=== PATIENT | female | born 1990 | race Caucasian/White ===

== ENCOUNTER 2017-03-07 07:00 | Day surgery (SDC) | payer OTHER ==
[~2017-03-07] VITALS: Ht 175.3 cm; Wt 89.8 kg
[~2017-03-07 07:00] MED LIST: FLUOXETINE HCL10 M1 PO; VENTOLIN HFA18 GM INH; ZYRTEC10 MG PO
--- NOTE | 2017-03-07 10:46 | NUR ---
03/07/17 Cassius6 Julia Blackman 1030 PT ARRIVED NEEDING JAW THRUST TO MAINTAIN AIRWAY. PT NONRESPONSIVE TO STIMULI. 1040 PT MAINTAINING OWN AIRWAY, RESP EVEN AND UNLABORED.
--- NOTE | 2017-03-07 11:13 | NUR ---
PT IS BACK TO DS FROM PACU. REPORTING LESS THAN 1/10 PAIN -- CRAMPING. SHE IS TOLERATING SIPS OF WATER. CRACKERS ON BESIDE TABLE. CALL LIGHT WITH REACH. NO OTHER CO'S AT THIS TIME. WILL REASSESS WITHIN THE HOUR.
[2017-03-07] MEDS ORDERED: NORCO 5-325 TA1 EACH PO (11:54)
[2017-03-07] MEDS ORDERED: IBUPROFEN800 MG PO (11:54)
--- NOTE | 2017-03-07 13:19 | NUR ---
PT GIVEN DC INSTRUCTIONS IN THE PRESENCE OF HER MOM. SHE AND MOM VERBALIZE UNDERSTANDING AND ARE GIVEN THE OPPORTUNITY TO ASK QUESTIONS, WHICH ARE THEN ANSWERED. SHE IS EDUCATED ON HOW TO DRESS HERSELF AND THAT SHE WOULD THEN BE WHEELED OUT IN A WHEELCHAIR TO THE CAR.
--- NOTE | 2017-03-07 13:25 | NUR ---
PT RATHER ANXIOUS, VERSAID ALREADY ON BOARD. SUPPORTED BY HER MOTHER CALI. HELPED PT UNDERSTAND THE WAY THINGS WILL GO THIS MORNING, HAD PRAYER WITH HER. SHE THANKED ME, WILL FOLLOW NEEDED
--- NOTE | 2017-03-15 07:24 | OR ---
[address] [address] Signed DATE OF OPERATION: 03/07/2017 SURGEON: Ruddy Barney DO PREOPERATIVE DIAGNOSES: 1. High-grade squamous intraepithelial lesion. 2. High-risk Human papillomavirus positive. 3. Anxiety. POSTOPERATIVE DIAGNOSES: 1. High-grade squamous intraepithelial lesion. 2. High-risk Human papillomavirus positive. 3. Anxiety. PROCEDURES PERFORMED: Loop electrosurgical excision procedure with endocervical curettage. SURGEON: Ruddy Barney DO CONTROL AREA OPERATOR: None. ANESTHESIA: General. ESTIMATED BLOOD LOSS: Less than 5 mL. SPECIMEN: 1. Cervical LEEP biopsy. 2. Endocervical biopsy (Top-Hat LEEP). 3. Endocervical curettage. FINDINGS: Perineum with some irritation. Anal fissure improved, but still present at 12 o'clock. Upper vagina and cervix appear normal with acetic acid and Lugol's. HEMOSTASIS: At the end of procedure. Electronically Signed By: RUDDY BARNEY DO 03/15/17 0724 PATIENT NAME: PHIL MARIN OPERATIVE REPORT DATE OF : [birth year] PHYSICIAN: RUDDY BARNEY DO REPORT #: [id number] REPORT IS CONFIDENTIAL AND NOT TO BE RELEASED WITHOUT AUTHORIZATION [address] [address] Signed COMPLICATIONS: None. INDICATIONS: Ms. Marin is a pleasant 27-year-old, G0 white female with a history of abnormal Paps. She had an ASCUS Pap several years ago with a few interval normal Paps. She then had a HSIL Pap with positive high-risk HPV. She underwent colposcopy and biopsies that showed cervicitis. Repeat Pap, the patient again had HSIL. Decision was made to proceed with excisional procedure per ASCCP guidelines. Risks, benefits, and alternatives were discussed in detail with the patient. Patient understood and wished to proceed with the procedure. TECHNIQUE: The patient was taken to the operating room. A time-out was performed to confirm correct patient and correct procedure. General anesthesia was adequately established. This patient had a history of severe anxiety and was unable to tolerate procedure in the office. The patient was then prepped and draped in the dorsal lithotomy position. Her feet in Yellofin stirrups. ICPs were on and running and no preop antibiotics or heparin were indicated. A weighted speculum was placed in the vagina and examination of the vagina and the cervix was performed and normal. An insulated speculum was then placed, and the cervix was painted with acetic acid, that showed no gross acetowhite changes. The vagina and the cervix were then painted with Lugol solution, that showed no abnormalities outside of the squamocolumnar junction. A medium LEEP electrode 10 mm x 20 mm was then selected and used to perform the LEEP. A small LEEP electrode was then selected and used to perform Top-Hat biopsy. ECC then was performed with a Annemarie. The cervical and endocervical biopsies were marked at 12 o'clock with a stitch and all 3 biopsies were sent to Pathology for further evaluation. The biopsy site was made hemostatic with ball electrocautery and then Monsel solution was then applied. The patient was taken to the PACU in good and stable condition. Sponge, needle, and instrument count were correct x2 at end of the procedure. Ruddy Barney DO Electronically Signed By: RUDDY BARNEY DO 03/15/17 0724 PATIENT NAME: PHIL MARIN OPERATIVE REPORT DATE OF : [birth year] PHYSICIAN: RUDDY BARNEY DO REPORT #: [id number] REPORT IS CONFIDENTIAL AND NOT TO BE RELEASED WITHOUT AUTHORIZATION [address] [place] [address] Signed HONORIO/RANDY /[id number] Electronically Signed By: RUDDY BARNEY, DO 03/15/17 0724 PATIENT NAME: PHIL MARIN OPERATIVE REPORT DATE OF : [birth year] PHYSICIAN: RUDDY BARNEY DO REPORT #: [id number] REPORT IS CONFIDENTIAL AND NOT TO BE RELEASED WITHOUT AUTHORIZATION
== END 2017-03-07 13:10 | disposition home or self-care (01) ==
LOC: OPS 07:00 → DS 07:00 → OPS 09:30
PROVIDERS: Obstetrics & Gynecology
PROC: 0UBC7ZX Excision of Cervix, Via Natural or Artificial Opening, Diagnostic (ICD-10-PCS; principal; 2017-03-07 10:45)
DX: D06.0 Carcinoma in situ of endocervix (principal); N72 Inflammatory disease of cervix uteri; F41.9 Anxiety disorder, unspecified; J45.909 Unspecified asthma, uncomplicated; F32.9 Major depressive disorder, single episode, unspecified; Z90.89 Acquired absence of other organs; Z98.818 Other dental procedure status; Z79.899 Other long term (current) drug therapy
CPT/HCPCS: 00940; J1100; J1885; J2250; J2405; J3010; J7120

== ENCOUNTER 2017-10-17 08:50 | Day surgery (SDC) | payer OTHER ==
[~2017-10-17] VITALS: Ht 175.3 cm; Wt 90.3 kg
[~2017-10-17 08:50] MED LIST changes: +IBUPROFEN800 MG PO; +JOLESSA1 EACH PO; +NORCO 5-325 TA1 EACH PO
--- NOTE | 2017-10-17 12:05 | NUR ---
10/17/17 1205 Suzan Syed 1151- PT ARRIVES TO PACU UNRESPONSIVE TO STIMULI. MAINTAINING HER OWN AIRWAY. OXYGEN SAT 100% ON RA. 1157- PT TALKING WITH STAFF, REMAINS DROWSY. PT REPORTS NO NAUSEA OR PAIN.
--- NOTE | 2017-10-17 14:37 | NUR ---
PT IN BED, ALERT, ORIENTED AND SUPPORTED BY HER MOTHER CALI. PT WS SOMEWHAT ANXIOUS, HAS HAD SIMILIAR PRECEDURE. EXPLAINED ORDER OF EVENTS FOR TODAY, SHE SEEMED TO RELAX SOME-EVEN GOT HER TO LAUGH. PT REQUESTED PRAYER, WILL FOLLOW NEEDED
--- NOTE | 2017-10-22 20:27 | OR ---
[facility] [address] [place], [place] [address] Signed DATE OF OPERATION: 10/17/2017 SURGEON: Ruddy Barney DO PREOPERATIVE DIAGNOSES: 1. Cervical mass. 2. History of cervical intraepithelial neoplasia 3. POSTOPERATIVE DIAGNOSES: 1. Cervical mass. 2. History of cervical intraepithelial neoplasia 3. PROCEDURES PERFORMED: 1. Hysteroscopy. 2. Excision of endocervical polyp. 3. Endocervical curettage. ANESTHESIA: MAC. SPECIMENS: 1. Endocervical polyps. 2. Endocervical curettage. COMPLICATIONS: None. FINDINGS: Normal external genitalia. Cervix with endocervical polyp at 3 o'clock and at approximately 11 o'clock very distal in the endocervical canal. The remainder of the endocervical canal appears normal on hysteroscopy. The uterine cavity is normal with normal tubal ostia and endometrium without polyp or fibroid noted. INDICATIONS: Ms. Marin is a pleasant 27-year-old G0, P0 white female, who presented with high-grade Pap that was biopsied, MONCHO 3. A LEEP procedure was performed with a positive margin at 12 o'clock. At repeat examination six months later, she had an abnormal Pap smear and a cervical polyp was noted. On exam, ECC was unable to be performed. Biopsy of the cervical polyp was performed and demonstrated to be benign. Decision was made to bring the patient to the operating room to excise cervical polyps and further evaluate the Electronically Signed By: RUDDY BARNEY DO 10/22/172026 PATIENT NAME: PHIL MARIN OPERATIVE REPORT DATE OF : [birth year] REPORT #: [id number] PHYSICIAN: RUDDY BARNEY DO PCP: TANISHA GUZMAN PAC REPORT IS CONFIDENTIAL AND NOT TO BE RELEASED WITHOUT AUTHORIZATION [facility] [address] [place], [place] [address] Signed uterine cavity and endocervix. Risks, benefits, and alternatives were discussed in detail with the patient. Patient understands and wished to proceed with procedure. TECHNIQUE: The patient was taken to the operating room, where timeout was performed to confirm correct patient and correct procedure. MAC anesthesia was adequately established. The patient was prepped and draped in dorsal lithotomy position with her feet in Yellofin stirrups. ICPs were on and running and no preop antibiotics or heparin were indicated. A weighted speculum was placed in the vagina and the anterior lip of the cervix was grasped with long Allis clamp. After observing the endocervical polyps, an operative hysteroscope was then placed in the cervical os and advanced under direct visualization carefully and easily into the uterine cavity. Normal uterine cavity was identified. The hysteroscope was slowly withdrawn and the endocervical canal examined very carefully. No masses or other gross abnormalities were noted in the endocervical canal until the very distal portion at which point, the polyp arose predominantly at 3 o'clock, however there is a small polypoid tissue arising at 11 o'clock also. The hysteroscope was withdrawn and the polypoid tissue was then excised sharply using Metzenbaum scissors. Tissue was sent to pathology for further evaluation. An endocervical curettage was then performed with a Kevorkian curette and a Cytobrush used to collect additional cells. Ball-tipped cautery was then used to make the cervical os hemostatic and ablate any additional polypoid tissue. Good hemostasis was appreciated. The Allis clamp was removed, the speculum was removed, and the patient was then taken to PACU in good and stable condition. Sponge, needle, and instrument count was correct x2 at the end of procedure. Ruddy Barney DO JDW/MODL /[id number] Copies: ~ Electronically Signed By: RUDDY BARNEY DO 10/22/17 2027 PATIENT NAME: PHIL MARIN OPERATIVE REPORT DATE OF : [birth year] REPORT #: [id number] PHYSICIAN: RUDDY BARNEY DO PCP: TANISHA GUZMAN PAC REPORT IS CONFIDENTIAL AND NOT TO BE RELEASED WITHOUT AUTHORIZATION
== END 2017-10-17 12:43 | disposition home or self-care (01) ==
LOC: DS 08:50 → OPS 08:50 → DS 12:15 → OPS 12:15
PROVIDERS: Obstetrics & Gynecology
PROC: 0UDB7ZZ Extraction of Endometrium, Via Natural or Artificial Opening (ICD-10-PCS; 2017-10-17)
PROC: 0UJD8ZZ Inspection of Uterus and Cervix, Via Natural or Artificial Opening Endoscopic (ICD-10-PCS; 2017-10-17)
PROC: 0UBC7ZZ Excision of Cervix, Via Natural or Artificial Opening (ICD-10-PCS; principal; 2017-10-17 12:15)
DX: N84.1 Polyp of cervix uteri (principal); J45.909 Unspecified asthma, uncomplicated; F32.9 Major depressive disorder, single episode, unspecified; Z86.001 Personal history of in-situ neoplasm of cervix uteri; Z79.899 Other long term (current) drug therapy
CPT/HCPCS: 00952; J1100; J1885; J2250; J2405; J2704; J3010; J7120

== ENCOUNTER 2019-10-23 09:25 | Day surgery (SDC) | payer OTHER ==
[~2019-10-23] VITALS: Ht 175.3 cm; Wt 95.2 kg
--- NOTE | ~2019-10-23 | OR ---
[facility] [address] [place], [place] [address] Draft DATE OF OPERATION: 10/23/2019 SURGEON: Ruddy Barney DO PREOPERATIVE DIAGNOSES: 1. Incomplete miscarriage. 2. Rh positive. POSTOPERATIVE DIAGNOSES: 1. Incomplete miscarriage. 2. Rh positive. PROCEDURES PERFORMED: Suction dilation and curettage. ICE SCRAPER: None. ANESTHESIA: MAC. ESTIMATED BLOOD LOSS: 100 mL. SPECIMEN: Products of conception. FINDINGS: Normal external genitalia with normal clitoris, urethral meatus, bilateral [place]'s, and Bartholin's. Normal vagina with small amount of blood at the cervix. The cervix is visually closed. Uterus contracted and was clear of any remaining products of conception at the end of the procedure. Hemostasis at the end of procedure. COMPLICATIONS: None. INDICATIONS: Ms. Marin is a very pleasant 29-year-old, G1, P0-0-1-0, female who presented with incomplete miscarriage. She had an ultrasound approximately 11 weeks that showed empty gestational sac with irregular margins. The patient had regular periods and dating by PATIENT NAME: PHIL MARIN OPERATIVE REPORT DATE OF : [birth year] REPORT #: [id number] PHYSICIAN: RUDDY BARNEY DO PCP: TANISHA GUZMAN PAC REPORT IS CONFIDENTIAL AND NOT TO BE RELEASED WITHOUT AUTHORIZATION [facility] [address] [place] [id number] Draft LMP appeared to be accurate. Decreasing quants were noted over the past 48 hours, decreasing from 17,000-14,000. She has had increasing cramping and bleeding over the past several days. Discussed incomplete miscarriage and we reviewed options for management including expectant management, medications, or suction D and C. The patient's strongly requested suction D and C. Risks, benefits, and alternatives were discussed in detail with the patient. The patient understands and wished to proceed with the procedure. DESCRIPTION OF PROCEDURE: The patient was taken to the operating room, where a time-out was performed to confirm correct patient, correct procedure. MAC anesthesia was adequately established. The patient was then prepped and draped in the dorsal lithotomy position with feet in Yellofin stirrups. ICPs were on a running and no preoperative heparin was indicated. The patient received doxycycline 200 mg p.o. preoperative per [facility] protocol. The bladder was drained. Weighted speculum placed in vagina and the anterior lip of the cervix grasped with an Allis clamp. The cervix was very gently dilated just past the internal os using Hegar dilators up to a #10. A 10 curved curette was then gently advanced through the internal os of the cervix and gently advanced to the fundus. Suction was obtained to the green zone and the curette was slowly withdrawn while performing a circumferential curettage. Products of conception were noted in the suction tubing. A second pass was performed with the same technique that demonstrated minimal residual products of conception and the uterus appeared to contract down and bleeding was scant. The uterine cavity was gently probed using a sharp curette that demonstrated very minimal remainder products of conception. A final pass was then performed with a suction curette in the same fashion with no remaining products of conception and hemostats and uterus was hemostatic. A small amount of oozing was noted on the anterior lip of the cervix after removal of the Allis clamp. This was made hemostatic with a [id number] of 2-0 chromic. Uterus was involuted and bleeding was resolved. The patient was taken to PACU in good and stable condition. Sponge, needle, instrument count was correct x2 at the end of procedure. Ruddy Barney DO JDW/MODL /[id number] PATIENT NAME: PHIL MARIN OPERATIVE REPORT DATE OF : [birth year] REPORT #: [id number] PHYSICIAN: RUDDY BARNEY DO PCP: TANISHA GUZMAN PAC REPORT IS CONFIDENTIAL AND NOT TO BE RELEASED WITHOUT AUTHORIZATION [facility] [address] [place] [address] [place], [place] [address] Draft Copies: ~ PATIENT NAME: PHIL MARIN OPERATIVE REPORT DATE OF : [birth year] REPORT #: [id number] PHYSICIAN: RUDDY BARNEY DO PCP: TANISHA GUZMAN PAC REPORT IS CONFIDENTIAL AND NOT TO BE RELEASED WITHOUT AUTHORIZATION
[2019-10-23] MEDS ORDERED: CLARITIN10 MG PO (09:53)
--- NOTE | 2019-10-23 13:12 | NUR ---
10/23/19 1312 Suzan Syed 1251- PT ARRIVES TO PACU AROUSABLE, DOES NOT FOLLOW COMMANDS AND APPEARS CONFUSED. PT UPDATED THAT SHE IS IN THE RECOVERY ROOM AND TO TRY TO SLEEP. PT IS ABLE TO CLOSE HER EYES. RESP EVEN AND UNLABORED. OXYGEN SAT HIGH 90'S TO 100% ON RA. 1256- PT IS TEARY EYED SAYING, "MY BABY IS ". PT COMFORTED AND TALKED TO. PT IS ABLE TO BE CALMED. 1301- PT REPORTS SHE FEELS LIKE SHE IS HAVING SOME BLEEDING. PERIPAD CHECKED. NO BLEEDING PRESENT. 1307- DR. GAGE AT THE BEDSIDE TO TALK WITH THE PT.
--- NOTE | 2019-10-26 11:34 | PATH ---
[facility] [address] [facility] [place] [place] [address] Signed SPECIMEN(S): A PRODUCTS OF CONCEPTION SPECIMEN SOURCE: A. PRODUCTS OF CONCEPTION CLINICAL HISTORY: Incomplete miscarriage. FINAL PATHOLOGIC DIAGNOSIS: Products of conception: - Immature chorionic villi, implantation site, and decidua, consistent with products of conception. NAL:cml:C2NR MICROSCOPIC EXAMINATION: Histologic sections of all submitted blocks are examined by light microscopy. These findings, together with the gross examination, support the pathologic diagnosis. GROSS DESCRIPTION: One specimens are received in two containers, labeled "TW." A, #1. The specimen, labeled "TW," and designated on the requisition "products of conception," is received in formalin and consists of multiple fragments of brown-gerard, soft to villous tissue and red-brown clot (7.5 x 6.0 x 0.9 cm in aggregate). Tie Cutter sections submitted in cassette (A1). A, #2. The specimen, labeled "TW," and designated on the requisition "additional products of conception," is received in formalin and consists of multiple fragments of brown-gerard soft tissue and red-brown clot (3.4 x 2.9 x 1.0 cm in aggregate). Tie Cutter section is submitted in cassette (A1). AC (under the direct supervision of a pathologist) The Gross Description was prepared using a voice recognition system. The report was reviewed for accuracy; however, sound-alike word errors, addition and/or deletions may occur. If there is any question about this report, please contact Client Services. PERFORMING LABORATORY: The technical component was performed by [facility], [address] [place] [id number] (Airline Flight Attendant: Billie Connolly MD; CLIA# [id number]). Professional interpretation was performed by PATIENT NAME: PHIL QUINTERO PATHOLOGY DATE OF : [birth year] REPORT #: [id number] PHYSICIAN: LISA PATHOLOGY PCP: TANISHA GUZMAN PAC REPORT IS CONFIDENTIAL AND NOT TO BE RELEASED WITHOUT AUTHORIZATION [facility] [address] [place], [place] [address] Signed [facility], [facility], [address] [facility] [address], [place] [address] (CLIA# [id number]). Diagnostician: Sanjana Schroeder MD Pathologist Electronically Signed 10/26/2019 Copies: ~ PATIENT NAME: PHIL QUINTERO PATHOLOGY DATE OF : [birth year] REPORT #: [id number] PHYSICIAN: LISA PATHOLOGY PCP: TANISHA GUZMAN PAC REPORT IS CONFIDENTIAL AND NOT TO BE RELEASED WITHOUT AUTHORIZATION
== END 2019-10-23 14:00 | disposition home or self-care (01) ==
LOC: DS 09:25 → OPS 09:25 → DS 09:28
PROVIDERS: Obstetrics & Gynecology
PROC: 10D17ZZ Extraction of Products of Conception, Retained, Via Natural or Artificial Opening (ICD-10-PCS; principal; 2019-10-23 10:00)
DX: O03.4 Incomplete spontaneous abortion without complication (principal); J45.909 Unspecified asthma, uncomplicated; F32.9 Major depressive disorder, single episode, unspecified; F41.9 Anxiety disorder, unspecified; Z79.899 Other long term (current) drug therapy
CPT/HCPCS: 00952; 85027; 86850; 86900; 86901; J1100; J1885; J2001; J2250; J2405; J2704; J3010; J7121

== ENCOUNTER 2020-09-07 23:51 | Inpatient (IN) | payer OTHER ==
[~2020-09-07] VITALS: Ht 175.3 cm; Wt 93.7 kg
[2020-09-08] MEDS ORDERED: METOCLOPRAMIDE10 MG PO (00:13)
[2020-09-08] MEDS ORDERED: ENOXAPARIN40 MG/0.4 SUB-Q (00:14)
--- NOTE | 2020-09-08 07:01 | NUR ---
PT ARRIVED TO [facility] VIA STRETCHER. SHE WAS ABLE TO MOVE OVER SBA. VS TAKEN AND ENTERED. ORIENTED PT TO CALL LIGHT AND PROVIDED WARM BLANKET. PT DENIES FURTHER NEEDS AT THIS TIME. CALL LIGHT IS CLOSE.
--- NOTE | 2020-09-08 07:20 | NUR ---
REPORT RECEIVED FROM RN AND PT. ARRIVED VIA STRETCHER. PARTNER AT BEDSIDE. PT. DENIES PAIN OR NAUSEA AT THIS TIME. ALERT AND ORIENTED. AMBULATING WITH SBA. LUNGS CLEAR THROUGHOUT. ABDOMEN SOFT AND PT. DENIES TENDERNESS. IV SITE WNL AND FLUSHES WELL. SKIN INTACT. PT. UP TO THE BATHROOM WITH SBA ASSIST TO VOID. URINE IS SILVINO. PT. STATES SHE VOMITED SEVERAL TIMES YESTERDAY. SURG. WIPE DOWN COMPLETED. SCD IN PLACE. DISCUSSED POST-OP AND PAIN MANAGEMENT AND SAFETY. PT. LEFT RESTING WITH CALL LIGHT IN REACH.
--- NOTE | 2020-09-08 09:00 | NUR ---
PT. REPORTS 9/10 UPPER ABD PAIN THAT IS SHARP. ADMIN. 0.5 MG OF DILAUDID AND GIVEN A HEAT PACK. PT. AMBULATED INDEPENDENTLY TO THE BATHROOM TO VOID. BACK TO BED WITH SCDS IN PLACE.
--- NOTE | 2020-09-08 14:30 | NUR ---
DR. ARRIAGA CALLED TO GIVE VERBAL ORDER FOR PT TO RECEIVE 40 MG LOVENOX SUB-Q ONCE A DAY HS STARTING TONIGHT. ORDER PUT IN. PT HAS BEEN TAKING LOVENOX AT HOME ONCE A DAY BEFORE BEDTIME AND LAST DOSE WAS 09/07/20 HS.
--- NOTE | 2020-09-08 15:09 | NUR ---
PT. REPORTS NAUSEA AND CONTINUING PAIN IN UPPER ABD. ADMIN. 0.5MG DILAUDID AND ZOFRAN IVP. PT. LEFT RESTING WITH MOTHER AND AT BEDSIDE.
--- NOTE | 2020-09-08 15:52 | NUR ---
HEART TONES ASSESSED BY DR. GAGE PRIOR TO PROCEDURE. WNL
[2020-09-08] MEDS ORDERED: PRENATAL FORMU1 EAC3 PO (17:28)
[2020-09-08] MEDS ORDERED: VITAMIN D350 MC3 PO (17:28)
[2020-09-08] MEDS ORDERED: ASPIRIN81 MG PO (17:28)
--- NOTE | 2020-09-08 17:29 | NUR ---
MED REC COMPLETE
--- NOTE | 2020-09-08 19:10 | NUR ---
RECEIVED REPORT ON PT, SHE IS IN SURGERY AT THIS TIME. FAMILY IS IN THE ROOM AND THEY DENY NEEDS AT THIS TIME.
--- NOTE | 2020-09-08 19:33 | NUR ---
09/08/201932 Ml [place] [address]ardo PATIENT ARRIVES TO PACU UNRESPONSIVE TO PAIN, ORAL AIRWAY IN PLACE. RESP EVEN AND UNLABORED, MASK AT 6 LITERS.
--- NOTE | 2020-09-08 20:28 | NUR ---
SPOKE WITH FAMILY, THEY STATE DR ARRIAGA AND DR GAGE HAVE TALKED WITH THEM ABOUT PT STAYING OVER NIGHT. THEY DENY NEEDS AT THIS TIME. PACU SAYS PT SHOULD BE BACK SOON.
--- NOTE | 2020-09-08 21:10 | NUR ---
PT ARRIVED TO [facility] FLOOR AT 2049. EVELIA DIE MAINTENANCE TECHNICIAN HAD ALREADY NOTIFIED DR GAGE TO COME SEE HER. VS TAKEN AND STABLE. SHE IS ON CPOX AT THIS TIME 100% RA. PT REPORTS PAIN TOLERABLE AT 4/10 WITH A GOAL OF 6 OR LESS. LAP SITES HAVE SMALL AMT OF BLOOD ON STERI STRIP. SWETHA HAS VERY SMALL AMOUNT OF SEROSANGUINOUS DRAINAGE IN BULB. EVELIA ROSE CONFIRMED WITH DR ARRIAGA THAT PT WILL STILL HAVE ANCEF AT 0 EVEN THOUGH SHE HAD A DOSE IN PACU. PT AND FAMILY DENY FURTHER NEEDS AT THIS TIME. WILL RETURN FOR POST OP VS. CALL LIGHT IS CLOSE.
--- NOTE | 2020-09-08 22:00 | NUR ---
IN ROOM TO GET VS AND BRING PT'S MOM BEDDING. SHE DENIES NEEDS AT THIS TIME. CALL LIGHT IS CLOSE AND IV IS INFUSING FINE.
--- NOTE | 2020-09-08 23:09 | NUR ---
ASSISTED PT TO USE BEDPAN SHE WAS NERVOUS TO GET UP TO BSC. SHE WAS MEDICATED WITH IV MORPHINE 2MG FOR 6/10 PAIN. PT VOIDED 200MLS CONCENTRATED URINE. VS TAKEN AND ENTERED. PT DENIES FURTHER NEEDS AT THIS TIME. CALL LIGHT IS CLOSE.
--- NOTE | 2020-09-09 00:20 | NUR ---
IN ROOM TO ADMINISTER MORPHINE FOR 09/17 PAIN. INCREASED THE DOSE PER PT REQUEST SHE STATES IT DID NOT HELP HER PAIN MUCH. ADMINISTERED 4 MG IV MORPHINE DILUTED IV SLOW PUSH. PT DENIES NAUSEA AND OTHER NEEDS AT THIS TIME. CALL LIGHT IS CLOSE.
--- NOTE | 2020-09-09 01:25 | NUR ---
ASSISTED PT TO RESTROOM 1PA, SHE WAS SLOW MOVING AND PAINFUL. PT STATES SHE WOULD LIKE TO TRY NOT TO TAKE MORE MEDICATION AT THIS TIME BUT WILL CALL IF SHE IS HAVING PAIN. SHE IS BACK IN BED WITH SCDS ON, CPOX AND IV IS INFUSING FINE. VS TAKEN. LAP SITES ARE WNL AND EMPTIED SWETHA DRAIN-30MLS SEROSANGUINOUS DRAINAGE. PT IS TAKING SIPS OF WATER WITHOUT NAUSEA. PT'S MOM IS IN THE ROOM AND SHE DENIES FURTHER NEEDS AT THIS TIME. CALL LIGHT IS CLOSE.
--- NOTE | 2020-09-09 03:15 | NUR ---
PT IS RESTING WITH EYES CLOSED, RR IS EVEN AND NONLABORED. CALL LIGHT IS CLOSE, IV IS INFUSING FINE, CPOX WNL.
--- NOTE | 2020-09-09 04:23 | NUR ---
PT CALLED ASKING TO USE BED OWUSU. EXPLAINED IT WAS OK NOW BUT THIS MORNING SHE NEEDS TO TAKE SOMETHING TO KEEP HER PAIN UNDERCONTROL AND AMBULATE. EDUCATED PT ON POST OP AMBULATION AND SHE AGREED. PT VOIDED 300 X1 MISS OF URINE. PT DENIES OTHER NEEDS AT THIS TIME, FRESH ICEWATER PROVIDED. PAIN IS 5/10 BUT PT STATES SHE WILL TRY TO GO BACK TO SLEEP AND SHE WILL CALL IF SHE NEEDS PAIN MEDS. CALL LIGHT IS CLOSE AND PT'S MOM EUN IS IN ROOM.
--- NOTE | 2020-09-09 06:50 | NUR ---
ADMINISTERED 4 MG IV MORPHINE DILUTED SLOW PUSH FOR 7/10 PAIN. ALSO ADMINISTERED TYLENOL ALONG WITH JELLO. ASSISTED PT UP TO THE RESTROOM SBA AND BACK TO BED. SHE DENIES FURTHER NEEDS AT THIS TIME. CALL LIGHT IS CLOSE.
--- NOTE | 2020-09-09 07:45 | NUR ---
REPORT RECEIVED FROM NIGHT RN AND PT. CARE RESUMED. PT. IS ALERT AND ORIENTED. SHE AMBULATED WITH SBA TO THE BATHROOM AND REPORTS SHARP ABDOMINAL PAIN WITH AMBULATION. DENIES NAUSEA. 4X LAP SITE ABDOMINAL DRESSINGS ON ARE INTACT WITH A SMALL AMOUNT OF SERISANGUINOUS DRAINAGE PRESENT. BOWEL TONES ACTIVE. PT. REPORTS SHE HAS NOT PASSED GAS SINCE SURGERY. ABDOMEN IS TENDER AND MILDLY DISTENDED. LUNGS CLEAR THROUGHOUT. IV SITE WNL AND FLUSHES WELL. DISCUSSED AMBULATIN AND EATING BREAKFAST. PT. LEFT RESTING WITH CALL LIGHT IN REACH.
--- NOTE | 2020-09-09 09:33 | NUR ---
PT. AMBULATED ONE LAP AROUND THE UNIT WITH SBA AND TOLERATED WELL. ADMIN. PERCOCET AFTER AMBULATION. SALINE LOCKED. PT. LEFT RESTING WITH MOTHER AT BEDSIDE.
--- NOTE | 2020-09-09 09:44 | OR ---
[facility] [address], [place] [address] Signed DATE OF OPERATION: 09/08/2020 SURGEON: Venkat Arriaga MD PREOPERATIVE DIAGNOSES: 1. Acute calculous cholecystitis with choledocholithiasis, abnormal liver enzymes and elevated bilirubin (5.6). 2. Eleven week intrauterine gestation, multiple prior failures. 3. Lupus anticoagulant disorder. POSTOPERATIVE DIAGNOSES: 1. Acute calculous cholecystitis with choledocholithiasis, abnormal liver enzymes and elevated bilirubin (5.6). 2. Eleven week intrauterine gestation, multiple prior failures. 3. Lupus anticoagulant disorder. PROCEDURES: 1. Laparoscopic cholecystectomy with cholangiogram. 2. Laparoscopic common duct exploration (transcystic) with ampullary dilation and biliary lavage. 3. Flexible choledochoscopy. 4. Surgeon-directed fluoroscopy. BARREL INSPECTOR: Ruddy Barney DO ANESTHESIA: General endotracheal. Santos Nice CRNA and local 20 mL of 0.25% Marcaine with epinephrine. INDICATION: This 30-year-old white woman is 11 weeks . 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 She is taking Lovenox 40 mg subcutaneously every evening and 81 mg aspirin b.i.d. She presented to the emergency room late yesterday and was evaluated by Dr. Fagan with severe epigastric and right subcostal pain. A gallbladder ultrasound was performed, which showed multiple gallstones in the gallbladder as well as common duct and debris. Her liver enzymes were markedly elevated with a bilirubin of 5.9, AST of 163, ALT of 284, and alkaline phosphatase of 174. The patient has been admitted, given intravenous fluid Electronically Signed By: VENKAT ARRIAGA MD 09/09/20 0944 PATIENT NAME: PHIL QUINTERO OPERATIVE REPORT DATE OF : [birth year] REPORT #: [id number] PHYSICIAN: VENKAT ARRIAGA MD PCP: RUDDY BARNEY DO REPORT IS CONFIDENTIAL AND NOT TO BE RELEASED WITHOUT AUTHORIZATION [facility] [address], [place] [address] Signed resuscitation, IV antibiotic Ancef and has been recommended to undergo cholecystectomy with probable laparoscopic common duct exploration. She understands as does her and her mother the risk of bleeding, infection, bile duct injury, failure to clear the bile duct, need for other additional procedures, need for open procedures including possible open common duct exploration. I have reviewed with her inspector precision assembly and mechanical technician, Dr. Barney, the feasibility of operation and he concurs with my recommendations. We are mindful that other approaches including ERCP and so forth would be a consideration. However, there are special risk to that approach including pancreatitis, prolonged radiation exposure and most importantly no local availability for a great distance from this institution. On that basis, we will plan for cholecystectomy and common duct exploration as appropriate at this time. FINDINGS: The gallbladder was quite markedly distended and inflamed and quite edematous. The liver was normal. The uterus was visualized and appropriate in its size and appearance for 11 weeks intrauterine gestation. Initial cholangiogram showed an obvious filling defect in the distal common duct and possible other filling defects. Transcystic common duct exploration was undertaken including ampullary dilation as well as cystic ductal dilation, irrigation of the biliary tree and flexible choledochoscopy. By conclusion, there appears to be no evidence of filling defect or impediment of bile flow into the duodenum. DESCRIPTION OF PROCEDURE: The patient was brought to the operating room, given a general endotracheal anesthetic. A bump was placed beneath the right hip on the basis of her intrauterine gestation. The abdomen was prepared with a chlorhexidine solution and draped sterilely. She was given Ancef immediately prior to operation as she had been before. Sequential compression device stockings were used and she was within her therapeutic window of Lovenox 40 mg subcutaneously administered. After satisfactory general endotracheal anesthesia and preparation of the abdomen, an infraumbilical incision was made and using an open Jose cannula technique, pneumoperitoneum was achieved to a level of 14 mmHg of carbon dioxide gas. Intraabdominal inspection showed no sign of ascites or carcinomatosis. Three additional trocars were placed in usual configuration in the subxiphoid, right midclavicular, and right anterior axillary line. The gallbladder was grasped and elevated cephalad and found to be markedly inflamed and edematous and quite distorted particular in the infundibulum. The infundibulum was grasped and retracted laterally and using blunt electrocautery dissection the triangle of Calot was dissected free. The cystic artery and the enlarged pericholecystic lymph node were noted. The cystic artery was doubly clipped and divided. A window was created between the cystic duct and the hepatic plate with a critical view of safety and the cystic duct well defined and rather Electronically Signed By: VENKAT ARRIAGA MD 09/09/20 0944 PATIENT NAME: PHIL QUINTERO OPERATIVE REPORT DATE OF : [birth year] REPORT #: [id number] PHYSICIAN: VENKAT ARRIAGA MD PCP: RUDDY BARNEY DO REPORT IS CONFIDENTIAL AND NOT TO BE RELEASED WITHOUT AUTHORIZATION [address] [address] Signed dilated indeed. A clip was applied across gallbladder cystic duct junction and a transverse choledochotomy was made in the cystic duct. Retrograde milking of the cystic duct showed dark somewhat thickened bile but no stones. Using the De Jesus type cholangiocatheter, intraoperative cholangiography was undertaken with surgeon-directed fluoroscopy. Free flow of contrast was noted into the biliary tree with an obvious filling defect in the distal duct. There was minimal flow into the duodenum if any. At this point, a laparoscopic common duct exploration was deemed advisable. A 5 mm taut trocar was placed in alignment with the cystic duct not far from the epigastric port. A flexible wire with slipery tip was passed down the trocar into the cystic duct with its alignment along the trocar. Under fluoroscopic control, the wire was confirmed to be in the duodenum and had past the ampulla. The filling defect was still visible in the distal duct as there remained contrast within the biliary tree. An ERCP catheter was then carefully passed over the wire and the radiopaque marker was positioned across the ampulla. Dilation with the radiocontrast of the device was used to dilate the ampulla and held in position for about 2 minutes. Under fluoroscopic control, it was deflated and withdrawn to the cystic duct common duct junction and again careful insufflation undertaken under fluoroscopic control. It too was allowed to dilate for a minute or two and then deflated. Then withdrawn to the main common were in the main cystic duct or under laparoscopic visualization the dilation could be seen as well. Once completed, the catheter was removed. The wire was subsequently removed. A flexible uretero-nephroscope was then carefully passed down the trocar site and insinuated into the cystic duct. Visualization showed typical biliary mucosa. The scope was advanced carefully into the common bile duct and no obstructing stone was then seen. Without much effort at all, the visualization was found to be in the duodenum itself. With orientation of the camera, there appeared to be several stones actually in the duodenum, likely to have been flushed through. The scope was withdrawn to the common duct and examination showed a few shards of debris, but not much and certainly no obstructing stone. Attempts were made to pass down a basket through the channel of the scope to more fully interrogate the mucosa, however, nothing could be grasped with it. The scope was then removed and cholangiography repeated. Using the De Jesus type cholangiocatheter, intraoperative cholangiography was repeated showing free flow of contrast in biliary tree with emptying into the duodenum and no obvious filling defects at all. Electronically Signed By: VENKAT ARRIAGA MD 09/09/20 0944 PATIENT NAME: PHIL QUINTERO OPERATIVE REPORT DATE OF : [birth year] REPORT #: [id number] PHYSICIAN: VENKAT ARRIAGA MD PCP: RUDDY BARNEY DO REPORT IS CONFIDENTIAL AND NOT TO BE RELEASED WITHOUT AUTHORIZATION [facility] [address], [place] [address] Signed Irrigation was undertaken further and the cystic duct was triply clipped and divided. The gallbladder was then dissected free in a retrograde fashion using electrocautery. The gallbladder was placed in endobag and extracted through the infraumbilical port, opened on the back table and found to have multiple yellow mulberry type stones of variable sizes. There was no sign of neoplasm of the mucosa. Irrigation was undertaken of the subhepatic space. There was no sign of bile leak, bleeding or other problems. Excess irrigation fluid was suctioned free. Through a right-sided trocar site, a 7 mm flat Saud drain was insinuated into the subhepatic space. The trocars removed under direct visualization showing no sign of bleeding. The drain was secured to the skin with nylon suture. Attention was then turned towards closure. The infraumbilical fascial incision was reapproximated with interrupted 0 Vicryl suture. 20 mL of 0.25% Marcaine was injected locally. The skin was then closed with interrupted 3-0 Vicryl. Steri-Strips were applied. The patient was ultimately extubated and transferred to the recovery room in good condition and suffered no complication. Sponge, needle, and instrument counts were reported as correct x3. Venkat Arriaga MD /MODL /[id number] cc: DO Isabelle Obregon MD Copies: RUDDY BARNEY KELLY DEAN MD ~ Electronically Signed By: VENKAT ARRIAGA MD 09/09/20 0944 PATIENT NAME: PHIL QUINTERO OPERATIVE REPORT DATE OF : [birth year] REPORT #: [id number] PHYSICIAN: VENKAT ARRIAGA MD PCP: RUDDY BARNEY DO REPORT IS CONFIDENTIAL AND NOT TO BE RELEASED WITHOUT AUTHORIZATION
--- NOTE | 2020-09-09 09:44 | HP ---
[facility] [address], [place] [address] Signed ADMISSION DATE: 09/07/2020 REASON FOR ADMISSION: Acute calculous cholecystitis and probable choledocholithiasis. 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 She is accompanied by her . Yesterday, she began having epigastric and right subcostal pain radiating to the back. She presented to the emergency room and was seen by Dr. Foy where clinical diagnosis of acute cholecystitis was made. A gallbladder ultrasound was performed, which showed a gallbladder with multiple stones and ultrasonographic findings highly suggestive of common duct obstruction and choledocholithiasis. Notably, her liver enzymes were markedly elevated and bilirubin elevated as well. Her lipase was normal. Bilirubin was 5.9, AST 163, ALT 284, alkaline phosphatase 174. Her electrolytes were normal. Creatinine was 0.71. Of special note, the patient is 11 weeks . This is her third . She had miscarriage at 11 weeks in the past and five weeks in the past and was discovered to have antiphospholipid antibody syndrome. On that basis, she is now taking Lovenox 40 mg subcutaneously daily. She has no other known coagulopathy. She has never had embolism or thrombosis of any sort otherwise. PAST SURGICAL HISTORY: Includes tonsillectomy. SOCIAL HISTORY: She and her have no children. She lives in [place] as described. Works for the school district. REVIEW OF SYSTEMS: She denies any shortness of breath or chest pain. Her epigastric pain and subcostal pain have improved since admission. She has had no nausea or vomiting. PHYSICAL EXAMINATION: GENERAL: Somewhat obese white woman who does not look to be severely toxic at this time. HEENT: Trachea is midline. CHEST: Clear. HEART: Regular without murmur. ABDOMEN: Somewhat obese but soft. There is mild right subcostal tenderness. There is Electronically Signed By: VENKAT ARRIAGA MD 09/09/20 0944 PATIENT NAME: PHIL QUINTERO HISTORY AND PHYSICAL DATE OF : [birth year] REPORT #: [id number] PHYSICIAN: VENKAT ARRIAGA MD PCP: RUDDY GAGE DO REPORT IS CONFIDENTIAL AND NOT TO BE RELEASED WITHOUT AUTHORIZATION [facility] [address], [place] [address] Signed no palpable mass. She has no ascites. EXTREMITIES: Show no clubbing, cyanosis, or edema. She has sequential compression device stockings in place. ASSESSMENT: The patient has acute calculous cholecystitis and possible choledocholithiasis based on liver enzymes and imaging studies. I discussed the pathophysiology of this problem with the patient and her in great detail with use of illustrations and so forth. Options of management would include referral to a tertiary center for ERCP papillotomy and subsequent cholecystectomy versus laparoscopic cholecystectomy, cholangiogram and laparoscopic common duct exploration. I believe that the latter is reasonably possible and they would prefer to stay locally if possible. Under the circumstances of her and other issues, I would recommend continued use of Lovenox 40 mg subcutaneously daily of course. There may be hazard to the fetus on the basis of surgery and anesthesia, but I believe a far greater hazard related to underlying pathology including cholecystitis, common duct stone, and so forth. It may be possible that laparoscopic duct exploration and clearance is accomplished. However, I did discuss for the possible need for open common duct exploration versus secondary referral for ERCP. Both options were acceptable to her. We will plan for continued IV antibiotics, fluids, maintenance of n.p.o. status, anticipating laparoscopic cholecystectomy and possible common duct exploration later today. Venkat Arriaga MD /SADEL /[id number] cc: DO Rafat Obregon MD Copies: RUDDY GAGE DO Electronically Signed By: VENKAT ARRIAGA MD 09/09/20 0944 PATIENT NAME: PHIL QUINTERO HISTORY AND PHYSICAL DATE OF : [birth year] REPORT #: [id number] PHYSICIAN: VENKAT ARRIAGA MD PCP: RUDDY GAGE DO REPORT IS CONFIDENTIAL AND NOT TO BE RELEASED WITHOUT AUTHORIZATION [facility] [address] [place] [address] Signed RAFAT FOY MD ~ Electronically Signed By: VENKAT ARRIAGA MD 09/09/20 0944 PATIENT NAME: PHIL QUINTERO HISTORY AND PHYSICAL DATE OF : [birth year] REPORT #: [id number] PHYSICIAN: VENKAT ARRIAGA MD PCP: RUDDY GAGE DO REPORT IS CONFIDENTIAL AND NOT TO BE RELEASED WITHOUT AUTHORIZATION
--- NOTE | 2020-09-09 10:39 | NUR ---
GOT PATIENT AN ICE PACK.
--- NOTE | 2020-09-09 10:56 | NUR ---
When checking in with the nursing staff they thought this PT may appreciate a visit from Spiritual Care. The two different times I stopped by PT was not available. I hope to try again if time permits.
--- NOTE | 2020-09-09 12:12 | NUR ---
PATIENT UP TO VOID WITH MINIMAL ASSIST, AMBULATED AN ENTIRE LAP IN HALLWAY BEFORE RETURNING TO ROOM.
--- NOTE | 2020-09-09 16:02 | NUR ---
PT REPORTS SEVERE RT. ABDOMINAL PAIN THAT SHE BELIEVES IS GAS PAIN. AMBULATED 1 LAP AROUND THE UNIT AND ADMIN. PERCOCET. WILL CONTINUE TO MONITOR.
--- NOTE | 2020-09-09 18:36 | NUR ---
PT. HAS AMBULATED 4X AROUND THE UNIT TODAY AND TOLERATED WELL.
--- NOTE | 2020-09-09 19:10 | NUR ---
REPORT RECEIVED FROM OFFGOING RNBRIAN.
--- NOTE | 2020-09-09 20:14 | NUR ---
PT ASSESSMENT COMPLETE. PT REPORTS PAIN AT 5/10 TO ABD, REPORTS THIS IS GAS PAIN. PRN TYLENOL ADMINISTERED PER PT REQUEST. PT DENIES NAUSEA, OR SOB AT THIS TIME. ABD MILDLY DISTENDED. BT'S ACTIVE. ABD TENDER TO PALPATION. STERISTRIPS TO LAP SITES X4, NO DRAINAGE NOTED. SWETHA TO RUQ, SEROSANG DRAINAGE PRESENT. PT DECLINES TO LOOK AT HER ABD, WHEN CALTRANS EQUIPMENT OPERATOR LIFTS GOWN PUT PLACES ICE PACK OVER HER EYES. PT'S FAMILY IS AT BEDSIDE PROVIDING REASSURANCE. IV FLUSHED, PATENT AND WNL. ICE WATER REFILLED. PT DENIES FURTHER NEEDS AT THIS TIME. CALL LIGHT IN REACH.
--- NOTE | 2020-09-09 21:00 | NUR ---
RN TO ROOM FOR SCHEDULED MEDICATION ADMINISTRATION. PT STATES THAT GAS PAIN IS STILL PRESENT. ICE WATER REFILLED. PT DENIES FURTHER NEEDS AT THIS TIME. CALL LIGHT IN REACH. AT BEDSIDE.
--- NOTE | 2020-09-09 21:05 | NUR ---
IN TO GET VITALS FOR RN, PT ADLIB TO THE TOILET, FRESH ICE WATER FILLED AT THIS TIME, NO FURTHER NEEDS
--- NOTE | 2020-09-09 21:38 | NUR ---
PT AMBULATES ONE LAP ON [facility] IN[facility]ENT WITH PARTNER
--- NOTE | 2020-09-09 22:19 | NUR ---
LEAD NETWORK ARCHITECT TO ROOM, PT REQUESTS PRN PERCOCET FOR GAS PAIN. RATES PAIN 6/10. PT ASKS WHAT COULD HELP WITH GAS PAIN, ASKS FOR SUGGESTIONS ABOUT POSITIONING IN BED. EDUCATED REGARDING WALKING TO MOBILIZE GAS. PT REPORTS DEEPTHI FEELS LIKE IT GOES LOWER AND THEN BACK UP INTO GUT. REQUESTS SNACK, JELLO PROVIDED. FRESH ICE PACK AND ICE WATER PROVIDED. PT DENIES FURTHER NEEDS AT THIS TIME. CALL LIGHT IN REACH.
--- NOTE | 2020-09-10 01:07 | NUR ---
PT ROUNDING. PT RESTING IN BED AWAKE. REQUESTS HAT BE EMPTIED. DENIES FURTHER NEEDS. CALL LIGHT IN REACH. ASLEEP AT BEDSIDE.
--- NOTE | 2020-09-10 02:00 | NUR ---
PT UTLIZES CALL LIGHT AFTER USING THE BATHROOM. PT ASSESSMENT COMPLETE. PT STATES THAT PAIN IS WELL CONTROLLED AT THIS TIME AND SHE HAS BEEN ABLE TO SLEEP SOME. DENIES NASUEA OR SOB. ABD WITH MILD DISTENSION, PT ATTRIBUTES TO . BT'S ACTIVE. ABD NONTENDER TO PALPATION. PT DENIES FLATUS OR BM. SWETHA WITH SERO SANG DRAINAGE PRESENT. LAP SITES WITH STERISTRIPS, NO NEW DRAINAGE NOTED. PT DENIES FURTHER NEEDS AT THIS TIME. CALL LGHT IN REACH. ASLEEP AT BEDSIDE.
--- NOTE | 2020-09-10 05:35 | NUR ---
IN TO GET VITALS, LET RN KNOW ABOUT PTs GAS PAIN, ICE WATER FILLED, PT UP TO VOID, BRANDT PROVIDED, NO FURTHER NEEDS AT THIS TIME
--- NOTE | 2020-09-10 05:37 | NUR ---
NOTIFIED BY GENERAL PRODUCTION MANAGER, PT EXPERIENCING INCREASED PAIN. PT RATES PAIN 6/10 TO ABD, DESCRIBES GAS PAIN. PT STATES THAT SHE WAS ABLE TO PASS VERY SMALL AMOUNT OF FLATUS IN BATHROOM WHICH BRIEFLY RELIEVED HER PAIN. PRN ADMINISTERED FOR PAIN, SEE EMAR. DENI PEREZ PROVIDED, PT DENIES FURTHER NEEDS. CALL LIGHT IN REACH. AT BEDSIDE.
[2020-09-10] MEDS ORDERED: ACETAMINOPHEN500 MG PO (07:54)
[2020-09-10] MEDS ORDERED: OXYCODON-ACETA1 EAC2 PO (07:54)
--- NOTE | 2020-09-10 08:00 | NUR ---
REPORT RECEIVED FROM NIGHT RN AND PT. CARE RESUMED. PT. IS ALERT, ORIENTED AND DENIES PAIN. HR TAKEN WITH DOPPLER AND WAS 131-138. PT. IS ANXIOUS BUT REASSURED BY STAFF AND . LUNGS CLEAR THROUGHOUT. LAP. SITE DRESSINGS X4 ARE DRY AND INTACT. PT. IS AMBULATING WELL, TOLERATING FOOD AND PO FLUIDS. DISCUSSED POC AND DISCHARGE PLAN. PT. LEFT RESTING WITH AT BEDSIDE.
--- NOTE | 2020-09-10 09:11 | NUR ---
ALL DISCHARGE INSTRUCTIONS REVIEWED WITH PATIENT AND QUESTIONS ANSWERED. SHE DENIES PAIN AND NAUSEA. VITALS STABLE AND IV REMOVED WNL WITH CATH. INTACT. PT. LEFT VIA WHEELCHAIR WITH , VEHICLE CARE SPECIALIST AND ALL BELONGINGS TO VEHICLE.
--- NOTE | 2020-09-14 14:45 | PATH ---
[facility] [address] [place], [place] [address] Signed SPECIMEN(S): A GALLBLADDER AND STONES SPECIMEN SOURCE: A. GALLBLADDER AND STONES CLINICAL HISTORY: Cholelithiasis FINAL PATHOLOGIC DIAGNOSIS: Gallbladder, cholecystectomy: - Chronic cholecystitis with cholesterolosis. - Cholelithiasis. NAL:cml:C2NR MICROSCOPIC EXAMINATION: Histologic sections of all submitted blocks are examined by light microscopy. These findings, together with the gross examination, support the pathologic diagnosis. GROSS DESCRIPTION: The specimen, labeled "Arin Marin," and designated on the requisition "gallbladder and stones," is received in formalin and consists of: Specimen: Previously opened gallbladder. Dimensions: 7.4 x 3.7 x 0.8 cm. Serosa: Yellow-green and smooth. Cystic Duct: Inked, contains calculi. Calculi: Multiple orange-brown multilobulated stones, aggregate measurement of 3.5 x 3.0 x 1.2 cm. Mucosa: Green and velvety with yellow flecking. Wall thickness: 0.4 cm. Lymph node: No pericystic lymph nodes are grossly identified. Additional: None. Advertising Inserter sections are submitted in cassette (A1). FB (under the direct supervision of a pathologist) The Gross Description was prepared using a voice recognition system. The report was reviewed for accuracy; however, sound-alike word errors, addition and/or deletions may occur. If there is any question about this report, please contact Client Services. PERFORMING LABORATORY: The technical component was performed by [employer], Anel Fernandez, PATIENT NAME: ARIN MARIN PATHOLOGY DATE OF : [birth year] REPORT #: [id number] PHYSICIAN: LISA HUBBARD PCP: RUDDY GAGE DO REPORT IS CONFIDENTIAL AND NOT TO BE RELEASED WITHOUT AUTHORIZATION [facility] [address] [place], [place] [address] [place] [address] (Director Of Knowledge Management: Billie Connolly MD; CLIA# [id number]). Professional interpretation was performed by [facility], [address] [address] (CLIA# [id number]). Diagnostician: Sanjana Schroeder MD Pathologist Electronically Signed 09/14/2020 Copies: ~ PATIENT NAME: ARIN MARIN PATHOLOGY DATE OF : [birth year] REPORT #: [id number] PHYSICIAN: LISA HUBBARD PCP: RUDDY GAGE DO REPORT IS CONFIDENTIAL AND NOT TO BE RELEASED WITHOUT AUTHORIZATION
--- NOTE | 2020-09-20 14:34 | DS ---
[facility] [address] [place], [place] [address] Signed ADMISSION DATE: 09/07/2020 DISCHARGE DATE: 09/10/2020 REASON FOR ADMISSION: This 30-year-old white woman is 11 weeks . She presented to the emergency room with symptoms suggestive of acute cholecystitis and is found on gallbladder ultrasound to have multiple gallstones as well as probable common duct stones. Liver enzymes were elevated including her bilirubin at 5.9, AST 163, ALT 284, and alkaline phosphatase 174. This is the patient's 3rd and two others have been lost. Evaluation for cause of her demise revealed she has antiphospholipid antibody syndrome (lupus anticoagulant) and on that basis, she has been on Lovenox 40 mg subcutaneously daily as well as two aspirin daily during to improve chances of successful . She is admitted for further evaluation and care. PERTINENT PHYSICAL EXAMINATION: GENERAL: Showed a somewhat overweight white woman who did not look severely toxic. HEENT: Trachea is midline. CHEST: Clear. HEART: Regular without murmur. ABDOMEN: Obese, but soft. There is right subcostal tenderness. There is no palpable mass. heart tones were noted on Doppler examination. Fundic height is estimated midway between the umbilicus and the symphysis pubis. HOSPITAL COURSE: The patient was admitted, given intravenous antibiotic Ancef and fluid resuscitation. Sequential compression device stockings were used and her Lovenox was maintained. On September 08, 2020, she underwent laparoscopic cholecystectomy and laparoscopic common bile duct exploration. Gallstones were noted in the common bile duct as predicted and clearance of the duct was accomplished primarily by antegrade flushing, after dilation of the ampulla. A drain was allowed to remain in place in the subcostal area. She had immediate improvement of her liver enzymes, nearly normal by day of discharge. She had a fair amount of incisional pain at the umbilicus, which was best managed with Percocet. She was maintained with her Lovenox and aspirin regimen on the basis of her lupus anticoagulant issue. She was discharged to home anticipating a regular diet and lifting restriction of 20 pounds for the next two weeks. She is encouraged to walk on a daily basis, minimize chances of deep venous thrombosis and of course, maintain her anticoagulation regimen. She will call my office on Saturday to set up an appointment and follow up after four Electronically Signed By: VENKAT ARRIAGA MD 09/20/20 1434 PATIENT NAME: PHIL QUINTERO DISCHARGE SUMMARY DATE OF : 89 REPORT #: [id number] PHYSICIAN: VENKAT ARRIAGA MD PCP: RUDDY GAGE DO REPORT IS CONFIDENTIAL AND NOT TO BE RELEASED WITHOUT AUTHORIZATION [facility] [address] [place], [place] [address] Signed weeks. She has no dietary restrictions. She is permitted to shower and she keep the Steri-Strips on. DISCHARGE DIAGNOSES: 1. Acute calculus cholecystitis with choledocholithiasis and common bile duct obstruction. 2. Status post laparoscopic cholecystectomy with laparoscopic common duct exploration, clearance of duct on September 08, 2020. 3. Intrauterine gestation 11 weeks with history of demise x2. 4. 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 Venkat Arriaga MD JM/MODL /[id number] cc: MD Ruddy Harris DO Copies: RAFAT FOY MD, JAMES D DO ~ Electronically Signed By: VENKAT ARRIAGA MD 09/20/20 1434 PATIENT NAME: PHIL QUINTERO DISCHARGE SUMMARY DATE OF : 89 REPORT #: [id number] PHYSICIAN: VENKAT ARRIAGA MD PCP: RUDDY GAGE DO REPORT IS CONFIDENTIAL AND NOT TO BE RELEASED WITHOUT AUTHORIZATION
== END 2020-09-10 09:11 | disposition home or self-care (01) | DRG 818 ==
LOC: ED 23:51 → MS 23:52
PROVIDERS: ADMIT Surgery; ATTEND Surgery
PROC: 0F794ZZ Dilation of Common Bile Duct, Percutaneous Endoscopic Approach (ICD-10-PCS; 2020-09-08)
PROC: 0FT44ZZ Resection of Gallbladder, Percutaneous Endoscopic Approach (ICD-10-PCS; principal; 2020-09-08 12:00)
PROC: BF101ZZ Fluoroscopy of Bile Ducts using Low Osmolar Contrast (ICD-10-PCS; 2020-09-08 12:00)
DX: O99.611 Diseases of the digestive system complicating pregnancy, first trimester (principal); K80.43 Calculus of bile duct with acute cholecystitis with obstruction; D68.62 Lupus anticoagulant syndrome; Z20.822 Contact with and (suspected) exposure to COVID-19; O99.111 Other diseases of the blood and blood-forming organs and certain disorders involving the immune mechanism complicating pregnancy, first trimester; Z3A.11 11 weeks gestation of pregnancy; O99.211 Obesity complicating pregnancy, first trimester; E66.9 Obesity, unspecified; Z79.01 Long term (current) use of anticoagulants
CPT/HCPCS: 00790; 74300; 76705; 80053; 80076; 81001; 82150; 83690; 85025; 85027; 96374; 96375; 96376; 99285-25; C1726; C1769; C1894; C9803; G0378; J0131; J0690; J1100; J1170; J1650; J2001; J2270; J2405; J2550; J2704; J2710; J3010; J7030; J7121; Q9967; U0003

== ENCOUNTER 2021-03-21 00:03 | Inpatient (IN) | payer OTHER ==
[~2021-03-21 00:03] MED LIST changes: +ACETAMINOPHEN500 MG PO; +ASPIRIN81 MG PO; +ENOXAPARIN40 MG/0.4 SUB-Q; +METOCLOPRAMIDE10 MG PO; +OXYCODON-ACETA1 EAC2 PO; +PRENATAL FORMU1 EAC3 PO; +VITAMIN D350 MC3 PO
--- NOTE | 2021-03-21 01:28 | NUR ---
PT WAS SWABBED FOR COVID 19
--- NOTE | 2021-03-21 11:44 | PR ---
[facility] [address] [place], [place] [address] Signed Progress Notes IP Datetime Report Generated by CPBushra: 03/21/2021 11:44 PROGRESS NOTES: [id number] Impression: Normal Progression of Labor; Reassuring Heart Rate Procedures: Artificial ROM; Sterile Vag Exam Plan: Continue Present Management Informed Consent Obtain: Vaginal Delivery VITAL SIGNS: [id number] Vital Signs: Reviewed; Within Normal Limits EXAM: [id number] Dilatation: 3.0 Effacement: 80 Station: -2 Contractions: irritability MEMBRANES: [id number] Comments: Pt seen and examined. Doing well. Cx ripe on exam and recommend AROM. AROM performed and verbal consent obtained and verted noted to be well applied. Moderate amount of clear fluid. Mother and baby tolerated well. Discussed anticpated course of remainder of labor. All questions answered. FETUS A: [id number] FHR Baseline: 130 Variability: Moderate 6-25bpm Accelerations: 15X15 Decelerations: None FHR Category: Category I Presentation: Vertex Comments on Fetus A: No evidence of metabolic acidosis FETUS B: [id number] Signing Physician: Ruddy Barney DO Copies: ~ *Electronically Signed* 03/21/21 1144 RUDDY BARNEY DO PATIENT NAME: PHIL QUINTERO PROGRESS NOTE DATE OF : 89 PHYSICIAN: RUDDY BARNEY DO RPT #: [id number] REPORT IS CONFIDENTIAL AND NOT TO BE RELEASED WITHOUT AUTHORIZATION
--- NOTE | 2021-03-21 16:04 | PR ---
[facility] [address] [place], [place] [address] Signed Progress Notes IP Datetime Report Generated by CPBushra: 03/21/2021 16:04 PROGRESS NOTES: [id number] Impression: Normal Progression of Labor; Reassuring Heart Rate Procedures: Artificial ROM; Sterile Vag Exam Plan: Continue Present Management Informed Consent Obtain: Vaginal Delivery VITAL SIGNS: [id number] Vital Signs: Reviewed; Within Normal Limits EXAM: [id number] Dilatation: 5.0 Effacement: 90 Station: -2 Contractions: irritability MEMBRANES: [id number] Comments: Pt seen and examined. Doing well. Comfortable w/ epidural that was kindly placed by anesthesia. Cx adequate and FHT reassuring cat 1. Reviewed anticipated course of labor. All questions answered. Continue expectant management FETUS A: [id number] FHR Baseline: 130 Variability: Moderate 6-25bpm Accelerations: 15X15 Decelerations: None FHR Category: Category I Presentation: Vertex Comments on Fetus A: No evidence of metabolic acidosis FETUS B: [id number] Signing Physician: Ruddy Barney DO Copies: ~ *Electronically Signed* 03/21/21 1604 RUDDY BARNEY DO PATIENT NAME: PHIL QUINTERO PROGRESS NOTE DATE OF : 89 PHYSICIAN: RUDDY BARNEY DO RPT #: [id number] REPORT IS CONFIDENTIAL AND NOT TO BE RELEASED WITHOUT AUTHORIZATION
--- NOTE | 2021-03-21 18:31 | PR ---
[facility] [address] [place], [place] [address] Signed Progress Notes IP Datetime Report Generated by SHASHI: 03/21/2021 18:31 PROGRESS NOTES: [id number] Impression: Normal Progression of Labor; Reassuring Heart Rate Procedures: Sterile Vag Exam Plan: Continue Present Management; Anticipate Vaginal Delivery Informed Consent Obtain: Vaginal Delivery VITAL SIGNS: [id number] Vital Signs: Reviewed; Within Normal Limits EXAM: [id number] Dilatation: 7.0 Effacement: 90 Station: -2 Contractions: irritability MEMBRANES: [id number] Comments: Pt seen and examined. Doing well. Comfortable w/ epidural but c/o some nausea. Normal cervical progression and descent noted. Large amount of clear fluid on SVE. Anticipate . Reviewed anticipated course of labor, adequate pelvis, and EFW. Phenergan / Zofran for nausea PRN FETUS A: [id number] FHR Baseline: 130 Variability: Moderate 6-25bpm Accelerations: 15X15 Decelerations: None FHR Category: Category I Presentation: Vertex Comments on Fetus A: No evidence of metabolic acidosis FETUS B: [id number] Signing Physician: Ruddy Barney DO Copies: ~ *Electronically Signed* 03/21/21 183 RUDDY BARNEY DO PATIENT NAME: PHIL QUINTERO PROGRESS NOTE DATE OF : 89 PHYSICIAN: RUDDY BARNEY #: [id number] REPORT IS CONFIDENTIAL AND NOT TO BE RELEASED WITHOUT AUTHORIZATION
--- NOTE | 2021-03-21 21:53 | PR ---
[facility] [address] [facility] [place], [place] [address] Signed Progress Notes IP Datetime Report Generated by CPN: 03/21/2021 21:53 PROGRESS NOTES: [id number] Impression: Normal Progression of Labor; Reassuring Heart Rate Procedures: Sterile Vag Exam Plan: Continue Present Management; Anticipate Vaginal Delivery Informed Consent Obtain: Vaginal Delivery VITAL SIGNS: [id number] Vital Signs: Reviewed; Within Normal Limits EXAM: [id number] Dilatation: 9.5 Effacement: 100 Station: 0 Contractions: irritability MEMBRANES: [id number] Comments: Pt seen and evaluated. Complete and feeling urge to push. RN pushing w/ pt. Anticipate soon FETUS A: [id number] FHR Baseline: 130 Variability: Moderate 6-25bpm Accelerations: 15X15 Decelerations: None FHR Category: Category I Presentation: Vertex Comments on Fetus A: No evidence of metabolic acidosis FETUS B: [id number] Signing Physician: Ruddy Barney DO Copies: ~ *Electronically Signed* 03/21/21 2153 RUDDY BARNEY DO PATIENT NAME: PHIL QUINTERO JUAN MANUEL PROGRESS NOTE DATE OF : 89 PHYSICIAN: RUDDY BARNEY DO RPT #: [id number] REPORT IS CONFIDENTIAL AND NOT TO BE RELEASED WITHOUT AUTHORIZATION
--- NOTE | 2021-03-22 07:51 | PR ---
[facility] [address] [facility] [place], [place] [address] Signed PP Progress Notes Datetime Report Generated by CPN: 03/22/2021 07:51 SUBJECTIVE: [id number] Pain: Within Normal Limits Nausea/Vomiting: Denies Flatus: Yes Vital Signs: [id number] Vital Signs: Reviewed EXAM: Ongoing Cardiovascular: Normal Respiratory: Normal Abdomen/Uterus: Normal Lochia: Normal Vulva/Perineum: Not Done Breasts: Not Done CVA Tenderness: Normal Extremities: Normal Incision: Not Applicable Progress: Normal Exam Comments: Fundus firm U-2 nontender IMPRESSION/PLAN/PROCEDURES: [id number] Impression: Normal Progression Plan: Continue Present Management Progress Notes: Pt seen and examined. Doing well. Ambulating, voiding, and tolerating full diet. Pain and lochia minimal. No concerns. Countinue routine care. Anticipate d/c home tomorrow Signing Physician: Ruddy Barney DO Copies: ~ *Electronically Signed* 03/22/21 0751 RUDDY BARNEY DO PATIENT NAME: PHIL QUINTERO JUAN MANUEL PROGRESS NOTE DATE OF : 89 PHYSICIAN: RUDDY BARNEY DO [facility] #: [id number] REPORT IS CONFIDENTIAL AND NOT TO BE RELEASED WITHOUT AUTHORIZATION
--- NOTE | 2021-03-22 10:17 | PR ---
[facility] [address] [place], [place] [address] Signed PP Progress Notes Datetime Report Generated by CPN: 03/22/2021 10:17 SUBJECTIVE: [id number] Pain: Within Normal Limits Pain Comments: SOB w/ ambulation Nausea/Vomiting: Denies Flatus: Yes Vital Signs: [id number] Vital Signs: Reviewed; Within Normal Limits EXAM: Ongoing Cardiovascular: Normal Respiratory: Normal Abdomen/Uterus: Normal Lochia: Normal Vulva/Perineum: Not Done Breasts: Not Done CVA Tenderness: Normal Extremities: Normal Incision: Not Applicable Progress: Normal Exam Comments: Heart lungs normal. LE no edema bilaterally. IMPRESSION/PLAN/PROCEDURES: [id number] Impression: Normal Progression Plan: Continue Present Management Progress Notes: Called to pt's room to evaluate for slight SOB w/ ambulation. Pt reports very mild symptoms, no chest pain, palpatations. Hx sports induced asthma. Normal exam and vitals. Normal LE bilaterally. Discussed s/sx DVT / PE and indications for CTA if needed. Will monitor sx and have low threshold for CTA if additional sx. Signing Physician: Ruddy Barney DO Copies: ~ *Electronically Signed* 03/22/21 1017 RUDDY BARNEY DO PATIENT NAME: PHIL QUINTERO PROGRESS NOTE DATE OF : 89 PHYSICIAN: RUDDY BARNEY #: [id number] REPORT IS CONFIDENTIAL AND NOT TO BE RELEASED WITHOUT AUTHORIZATION
--- NOTE | 2021-03-23 17:12 | PR ---
[facility] [address] [facility] [place], [place] [address] Signed PP Progress Notes Datetime Report Generated by CPN: 03/23/2021 17:12 SUBJECTIVE: [id number] Pain: Within Normal Limits Pain Comments: SOB w/ ambulation Nausea/Vomiting: Denies Flatus: Yes Bowel Movement: No Vital Signs: [id number] Vital Signs: Reviewed; Within Normal Limits EXAM: Ongoing Cardiovascular: Normal Respiratory: Normal Abdomen/Uterus: Normal Lochia: Normal Vulva/Perineum: Not Done Breasts: Not Done CVA Tenderness: Normal Extremities: Normal Incision: Not Applicable Progress: Normal Exam Comments: Fundus firm U-2 nontender IMPRESSION/PLAN/PROCEDURES: [id number] Impression: Normal Progression Plan: Discharge Progress Notes: Pt seen and examined. Doing well. Ambulating, voiding, and tolerating full diet.Pain and lochia minimal. w/ assistance from . No fevers/chill or other concerns. Reviewed d/c instructions in detail. F/U 2 wks Signing Physician: Ruddy Barney DO Copies: ~ *Electronically Signed* 03/23/21 8601 RUDDY BARNEY DO PATIENT NAME: PHIL QUINTERO PROGRESS NOTE DATE OF : 89 PHYSICIAN: RUDDY BARNEY DO RPT #: [id number] REPORT IS CONFIDENTIAL AND NOT TO BE RELEASED WITHOUT AUTHORIZATION
== END 2021-03-23 18:00 | disposition home or self-care (01) | DRG 807 ==
LOC: FBC 00:03
PROVIDERS: ADMIT Obstetrics & Gynecology; ATTEND Obstetrics & Gynecology
PROC: 10E0XZZ Delivery of Products of Conception, External Approach (ICD-10-PCS; principal; 2021-03-21)
PROC: 0UQMXZZ Repair Vulva, External Approach (ICD-10-PCS; 2021-03-21)
PROC: 10907ZC Drainage of Amniotic Fluid, Therapeutic from Products of Conception, Via Natural or Artificial Opening (ICD-10-PCS; 2021-03-21)
PROC: 3E0P7VZ Introduction of Hormone into Female Reproductive, Via Natural or Artificial Opening (ICD-10-PCS; 2021-03-21)
PROC: 3E0R3BZ Introduction of Anesthetic Agent into Spinal Canal, Percutaneous Approach (ICD-10-PCS; 2021-03-21)
PROC: 00HU33Z Insertion of Infusion Device into Spinal Canal, Percutaneous Approach (ICD-10-PCS; 2021-03-21)
DX: O71.82 Other specified trauma to perineum and vulva (principal); Z20.822 Contact with and (suspected) exposure to COVID-19; Z37.0 Single live birth; Z3A.39 39 weeks gestation of pregnancy; Z79.82 Long term (current) use of aspirin; Z79.899 Other long term (current) drug therapy
CPT/HCPCS: 01960; 85027; 85610; 85730; A9270; C9803; J2405; J2590; J2795; J3010; U0003

== ENCOUNTER 2023-04-15 18:53 | Emergency (ER) | payer OTHER ==
[~2023-04-15] VITALS: Ht 182.9 cm; Wt 81.3 kg
[2023-04-15] MEDS ORDERED: IBUPROFEN 800 MG TAB PO ONE (19:15)
[2023-04-15] MEDS ORDERED: TRAMADOL HCL50 MG PO (19:41)
[2023-04-15 20:15] VITALS: BP 131/81
== END 2023-04-15 20:18 | disposition home or self-care (01) ==
LOC: ED 18:53
DX: S93.602A Unspecified sprain of left foot, initial encounter (principal); X50.1XXA Overexertion from prolonged static or awkward postures, initial encounter; Y93.68 Activity, volleyball (beach) (court); Z79.899 Other long term (current) drug therapy
CPT/HCPCS: 73630; 99283-25; A9270

== ENCOUNTER 2024-07-15 11:55 | Inpatient (IN) | payer OTHER ==
[~2024-07-15] VITALS: Ht 175.3 cm; Wt 96.2 kg
[~2024-07-15 11:55] MED LIST changes: +TRAMADOL HCL50 MG PO
[2024-07-15 12:54] LABS: AMNISURE ROM TEST POSITIVE
[2024-07-15] MEDS ORDERED: MAGNESIUM HYDROXIDE/AL HYDROX 30 ML CUP PO PRN (13:15)
[2024-07-15] MEDS ORDERED: LACTATED RINGER'S 1,000 ML IV PRN (13:15)
[2024-07-15] MEDS ORDERED: LACTATED RINGER'S 1,000 ML IV SCH (13:15)
[2024-07-15] MEDS ORDERED: ondansetron HCL 4 MG/2 ML VIAL IV PRN (13:15)
[2024-07-15] MEDS ORDERED: CALCIUM CARBONATE 500 MG CHEW PO PRN (13:15)
[2024-07-15 13:20] VITALS: BP 109/73
[2024-07-15 13:45] LABS: AMPHETAMINES, URINE NEGATIVE (NEGATIVE); BARBITURATES, URINE NEGATIVE (NEGATIVE); BENZODIAZEPINE, URINE NEGATIVE (NEGATIVE); BUPRENORPHINE, URINE NEGATIVE (NEGATIVE); CANNABINOID, URINE NEGATIVE (NEGATIVE); COCAINE, URINE NEGATIVE (NEGATIVE); ECSTASY, URINE NEGATIVE (NEGATIVE); FENTANYL, URINE NEGATIVE (NEGATIVE); METHADONE, URINE NEGATIVE (NEGATIVE); OPIATES, URINE NEGATIVE (NEGATIVE); OXYCODONE, URINE NEGATIVE (NEGATIVE); PHENCYCLIDINE, URINE NEGATIVE (NEGATIVE)
[2024-07-15 13:57] LABS: HEMATOCRIT 37.2 % (35.0-50.0); MCH 29.9 (27-36); MCHC 34.9 g/dl (30-36); MCV 85.5 fl (81-99); RBC 4.35 M/ul (4.3-5.7); RDW 13.5 (10.5-15.0)
[2024-07-15] MEDS ORDERED: OXYTOCIN/0.9 % SODIUM CHLORIDE 500 ML IV SCH (14:30)
[2024-07-15 14:42] LABS: ABO AB; RH POSITIVE
[2024-07-15 14:43] LABS: ANTIBODY SCREEN NEGATIVE
[2024-07-15 15:00] LABS: N. GONORRRHOEAE BY PCR NOT DETECTED (NOT DETECT)
[2024-07-16] MEDS ORDERED: OXYTOCIN/0.9 % SODIUM CHLORIDE 500 ML IV SCH ×3 (09:15→19:30)
[2024-07-16] MEDS ORDERED: HYDROCORTISONE ACETATE 25 MG SUPP PR PRN (19:30)
[2024-07-16] MEDS ORDERED: CALCIUM CARBONATE 500 MG CHEW PO PRN (19:30)
[2024-07-16] MEDS ORDERED: MAGNESIUM HYDROXIDE/AL HYDROX 30 ML CUP PO PRN (19:30)
[2024-07-16] MEDS ORDERED: HYDROCODONE/ACETA 5/325 TAB PO PRN (19:30)
[2024-07-16] MEDS ORDERED: MAGNESIUM HYDROXIDE 30 ML UDC PO PRN (19:30)
[2024-07-16] MEDS ORDERED: WITCH HAZEL/GLYCERIN 1 EA PAD TOP PRN (19:30)
[2024-07-16] MEDS ORDERED: BENZOCAINE 60 ML AEROSOL TOP PRN (19:30)
[2024-07-16] MEDS ORDERED: IBUPROFEN 600 MG TAB PO SCH (20:00)
[2024-07-16] MEDS ORDERED: SENNOSIDES/DOCUSATE 1 EA TAB PO SCH (21:00)
[2024-07-16] MEDS ORDERED: ACETAMINOPHEN 500 MG TAB PO SCH (22:00)
== END 2024-07-17 20:42 | disposition home or self-care (01) | DRG 807 ==
LOC: FBCO 11:55 → FBC 13:15
PROVIDERS: ADMIT Obstetrics & Gynecology; ATTEND Obstetrics & Gynecology
PROC: 10E0XZZ Delivery of Products of Conception, External Approach (ICD-10-PCS; principal; 2024-07-15)
PROC: 0KQM0ZZ Repair Perineum Muscle, Open Approach (ICD-10-PCS; 2024-07-15)
PROC: 10907ZC Drainage of Amniotic Fluid, Therapeutic from Products of Conception, Via Natural or Artificial Opening (ICD-10-PCS; 2024-07-15)
DX: O42.02 Full-term premature rupture of membranes, onset of labor within 24 hours of rupture (principal); Z37.0 Single live birth; Z3A.39 39 weeks gestation of pregnancy; O70.1 Second degree perineal laceration during delivery; Z88.8 Allergy status to other drugs, medicaments and biological substances; Z90.89 Acquired absence of other organs; Z98.890 Other specified postprocedural states; Z79.82 Long term (current) use of aspirin
CPT/HCPCS: 36415; 59025; 80307; 84112; 85027; 86850; 86900; 86901; A9270; G0463; J7121